=== PATIENT | female | born 1960 ===

== ENCOUNTER 2019-02-02 09:11 | Outpatient (CLI) | payer OTHER | END 2019-02-02 09:12 | disposition home or self-care (01) | LOC: C.MAMMO 09:11 | DX: N64.4 Mastodynia (principal) ==

== ENCOUNTER 2019-02-15 05:44 | Day surgery (SDC) | payer OTHER ==
[2019-02-15 06:21] VITALS: BMI 23.3
--- NOTE | 2019-02-15 07:33 | CP.SDSHP ---
<Lisa Spearmarques - Last Filed: 02/15/19 07:31> Same Day Surgery H & P - History Proposed Procedure: colonoscopy Pre-Op Diagnosis: change in bowel habit. hx of colon polyps - Previous Medical/Surgical History Cardiac: Hypertension Previous Surgical History: hysterectomy. tonsillectomy - Allergies Allergies: Allergies aspirin Allergy (Verified 02/15/19 06:21) ANAPHYLAXIS ibuprofen Allergy (Verified 02/15/19 06:21) ANAPHYLAXIS - Current Medications Current Medications: norvasc - Physical Exam General Appearance: no acute distress Vital Signs: Vital Signs 02/15/19 06:21 Temperature 97.5 F L Pulse Rate 77 Respiratory 19 Rate Blood Pressure 128/70 O2 Sat by Pulse 98 Oximetry Mental Status: Alert & Oriented x3 Neuro: WNL Heart: WNL Lungs: WNL GI: WNL - {Optional Preform as Required} Abdomen: WNL - Impression Impression: change in bowel habit. hx of polyps Pt. Evaluated Today:Candidate for Anesthesia & Procedure: Yes - Date & Time Date: 02/15/19 Time: 07:30 Short Stay Discharge - Short Stay Discharge Admitting Diagnosis/Reason for Visit: CHANGE IN BOWEL HABIT, PERSONAL HISTORY OF COLON P Disposition: HOME/ ROUTINE <Adama Calles - Last Filed: 02/15/19 07:55> Same Day Surgery H & P - Allergies Allergies: Allergies aspirin Allergy (Verified 02/15/19 06:21) ANAPHYLAXIS ibuprofen Allergy (Verified 02/15/19 06:21) ANAPHYLAXIS - Physical Exam Vital Signs: Vital Signs 02/15/19 06:21 Temperature 97.5 F L Pulse Rate 77 Respiratory 19 Rate Blood Pressure 128/70 O2 Sat by Pulse 98 Oximetry Attending/Attestation - Attestation I have personally seen and examined this patient.: Yes I have fully participated in the care of the patient.: Yes I have reviewed all pertinent clinical information: Yes Notes (Text): 02/15/19 07:54 patient for colonoscopy due to h/o colon polyps >3 years ago. Referred from [facility]. Risks/benefits of colonoscopy discussed and understood and accepted. Agree with Above.
[2019-02-15] MEDS ORDERED: Lactated Ringer's 500 ML IV ONE (07:55)
[2019-02-15] MEDS ORDERED: Propofol 10 mg/ml Inj (20 ML) ONE ×2 (07:59→08:05)
[2019-02-15 08:37] VITALS: TEMP 97.8
[2019-02-15 09:03] VITALS: BP 130/70; PULSE 75; RESP 20; O2SAT 99
== END 2019-02-15 09:25 | disposition home or self-care (01) ==
LOC: C.ENDO 05:44
PROVIDERS: ATTEND Internal Medicine Gastroenterology
DX: R19.4 Change in bowel habit (principal); Z86.010 Personal history of colon polyps; I10 Essential (primary) hypertension; Z79.899 Other long term (current) drug therapy; K64.1 Second degree hemorrhoids
CPT/HCPCS: 45378; J2001; J2704; J7120